=== PATIENT | male | born 1960 | race Caucasian/White ===

== ENCOUNTER → 2017-11-18 10:05 | Outpatient (CLI) | payer OTHER | END | disposition home or self-care (01) | LOC: D.RAD 10:00 | DX: Z02.71 Encounter for disability determination (principal) ==

== ENCOUNTER 2018-02-27 11:06 | Outpatient (CLI) | payer MEDICAID ==
[~2018-02-27] VITALS: Ht 182.9 cm; Wt 145.5 kg
--- NOTE | ~2018-02-27 | HEMODYNAMI ---
PATIENT:HU OLIVAREZ MEDICAL RECORD: [id number] : 56 LOCATION:[facility] ADMISSION DATE: 02/27/18 Generatedon:02/27/201814:44 Patient name: HU OLIVAREZ Patient #: [id number] SSN: : Date of study: 02/27/2018 Page: Of Hemodynamic Procedure Report Patient Data Patient Demographics Procedure consent was obtained First Name: HU Gender: Male Last Name: JUANIS : 1960 [facility] Initial: MIKE Age: 58 year(s) Patient #: [id number] Race: Unknown Additional ID: [id number] Contact details Address: [address] [place] [address] State: [place] City: [place] Zip code: [address] Past Medical History Allergies Allergen Reaction Date Comments Reported Other allergy 02/27/2018 poison adamaris Admission Admission Data Admission Date: 02/27/2018 Admission Time: 11:06 Lab Results Lab Result Date: 02/27/2018 Lab Result Time: 0:00 Biochemistry Name Units Result Min Max BUN mg/dl 11 --(-*--)-- 7 18 Creatinine mg/dl 1 --(--*-)-- 0.6 1.3 CBC Name Units Result Min Max Hemoglobin g/dl 15.2 --(-*--)-- 13.5 17.5 Procedure Procedure Types Cath Procedure Diagnostic Procedure LHC LHC w/Coronaries Procedure Description Procedure Date Procedure Date: 02/27/2018 Procedure Start Time: 14:33 Procedure End Time: 14:41 Procedure Staff Name Function Jaciel Quezada MD Performing Physician Sharmila Alejandre RT Monitor Cherry Dobbs RT Scrub Raine Dumas RN Nurse Procedure Data Cath Procedure Fluoroscopy Diagnostic fluoroscopy Total fluoroscopy Time: 1.6 time: 1.6 min min Diagnostic fluoroscopy Total fluoroscopy dose: 570 dose: 570 mGy mGy Contrast Material Contrast Material Type Amount (ml) Isovue 300 51 Entry Location Entry Primary Successful Side Size Upsize Upsize Entry Closure Succes sful Closure Location (Fr) 1 (Fr) 2 (Fr) Remarks Device Remarks Femoral Right 5 Fr Exoseal artery Estimated blood loss: 10 ml Diagnostic catheters Device Type Used For End Catheter Placement MULTIPACK JL 4.0 5Fr Procedure catheter MULTIPACK 3DRC 5Fr Procedure catheter MULTIPACK Pigtail 5 Fr Procedure catheter Procedure Complications No complications Procedure Medications Medication Administration Route Dosage Oxygen etCO2 Nasal cannula 2 l/min Lidocaine 2% added to field 20 Heparin Flush Bag added to field 2 bags (1000units/500ml NS) 0.9% NaCl I.V. 100 ml/hr Versed I.V. 2 mg Fentanyl I.V. 100 mcg Hemodynamics Rest HGB: 15.2 (g/dl) Heart Rate: 48 (bpm) Pressure Samples Time Site Value (mmHg) Purpose Heart Use Rate(bpm) 14:38 LV 128/19,25 Snapshot 53 14:38 AO 140/132(95) Pullback 52 14:38 LV 122/9,26 Pullback 52 Gradients Valve Time Site 1 Site 2 Mean SEP/DFP Peak To Heart Use (mmHg) (sec/min) Peak Rate (mmHg) (bpm) Aortic 14:38 LV AO 0 16 0 52 122/9,26 140/132(95) Calculations Valve P-P Mean Valve Index Valve Source Name Gradient Area Flow (cm2) Aortic 0 0 0 0 Snapshots Pre Cath Intra NCS Post Cath Vital Signs Time Heart Resp SPO2 etCO2 NIBP (mmHg) Rhythm Pain Sedation Rate (ipm) (%) (mmHg) Status Level (bpm) 14:28:42 50 19 100 39.1 148/88(112) NSR 0 (11) 10(A) , No pain 14:33:57 49 15 96 0 131/82(92) NSR 0 (11) 10(A) , No pain 14:38:14 51 15 94 0 126/83(107) NSR 0 (11) 9(A) , No pain 14:43:40 50 14 96 0 127/87(99) NSR 0 (11) 9(A) , No pain Medications Time Medication Route Dose Verified Delivered Reason Notes Eff ectiveness by by 14:26:41 Oxygen etCO2 2 Jaciel Ni used for Nasal l/min [facility] Dum[facility] client relationship manager cannula 14:26:49 Lidocaine 2% added 20ml Jaciel Grissom for local to vial [facility] Quezada anesthetic field MD RIGGS 14:26:58 Heparin Flush added 2 Jaciel Grissom used for Bag to bags [facility] Quezada procedure (1000units/500ml field MD RIGGS NS) 14:27:06 0.9% NaCl I.V. 100 Jaciel Ni Per ml/hr [facility] Dumas RN physician 14:31:28 Versed I.V. 2 mg Jaciel Ni for [facility] Dumas RN sedation 14:31:34 Fentanyl I.V. 100 Jaciel Ni for mcg [facility] Dumas RN sedation Procedure Log Time Note 14:00:37 Sharmila Hoganur RT(R) sent for patient. Start room use. 14:10:16 Diagnostic Cath Status : Elective 14:10:45 Time tracking: Regular hours (M-F 7:00 - 5:00) 14:10:49 Plan of Care:Hemodynamics will remain stable., Cardiac rhythm will remain stable., Comfort level will be maintained., Respiratory function will remain adequate., Patient/ family verbilizes understanding of procedure., Procedure tolerated without complication., Recovers from procedure without complications.. 14:11:07 Patient received from Pre/Post Procedure Room to [facility] 2 Alert and oriented. Tansferred to table in Supine position. 14:11:09 Warm blankets applied, and alex hugger turned on for patient comfort. 14:11:09 Correct patient and procedure confirmed by team. 14:11:11 Signed procedure consent form obtained from patient. 14:11:12 ECG and BP/O2 sat monitors applied to patient. 14:26:16 Vital chart was started 14:26:18 Baseline sample Acquired. 14:26:21 Full Disclosure recording started 14:26:28 H&P Date Dictated: 02/26/2018 Within 30 days and on chart.. 14:26:30 Pre-procedure instructions explained to patient. 14:26:31 Family in waiting room. 14:26:34 Patient NPO since Midnight. 14:26:38 Is the patient allergic to Iodine/contrast media? No. 14:26:41 Oxygen 2 l/min etCO2 Nasal cannula was administered by Raine Dumas RN; used for procedure; 14:26:49 Lidocaine 2% 20ml vial added to field was administered by Jaciel Quezada MD; for local anesthetic; 14:26:58 Heparin Flush Bag (1000units/500ml NS) 2 bags added to field was administered by Jaciel Quezada MD; used for procedure; 14:27:00 Patient allergic to Other allergypoison adamaris 14:27:03 Is the patient allergic to Iodine/contrast media? No. 14:27:04 Was the patient premedicated? Yes 14:27:06 0.9% NaCl 100 ml/hr I.V. was administered by Raine Dumas RN; Per physician; 14:27:06 Is patient on blood thinner?No 14:27:09 Patient diabetic? No. 14:27:14 Snore? Yes 14:27:16 Sleep apnea? No 14:27:18 Sleep apnea? N/A 14:27:22 Deviated septum? No 14:27:23 Sticks out tongue? Yes 14:27:28 Airway obstruction? Yes COPD 14:27:31 Dentures? No ? 14:27:38 IV patent on arrival in left hand with 0.9% NaCl at [facility]. 14:30:36 Lab Result : BUN 11 mg/dl 14:30:36 Lab Result : Hemoglobin 15.2 g/dl 14:30:36 Lab Result : Creatinine 1 mg/dl 14:30:41 Lab results completed and on chart. 14:30:43 Right groin area was prepped with chlora-prep and draped in sterile fashion 14:30:45 Alarms reviewed by R. N. 14:30:45 Sharps counted by scrub and verified by R.N. 14:30:46 Physician paged 14:30:46 Physician arrived 14:30:47 --------ALL STOP TIME OUT------ 14:30:48 Final Timeout: patient, procedure, and site verified with staff and physician. All members of the team are in agreement. 14:30:50 Right groin site verified by team. 14:30:54 Physical assessment completed. ASA score P 2 - A patient with mild systemic disease as per Jaciel Quezada MD. 14:30:59 Sedation plan: IV Moderate Sedation Medication:Versed, Fentanyl 14:31:03 Use device set Femoral Dx 14:31:05 ACIST Syringe (71822) opened to sterile field. 14:31:05 Bag Decanter (2002S) opened to sterile field. 14:31:06 Medline Cath Pack ([id number]) opened to sterile field. 14:31:06 DIAGNOSTIC WIRE .035 260cm J wire (283923) opened to sterile field. 14:31:08 ACIST Hand Control (41058) opened to sterile field. 14:31:08 ACIST Manifold (16373) opened to sterile field. 14:31:09 DIAGNOSTIC Multipack 5Fr catheter set ([id number]) opened to sterile field. 14:31:09 Tegaderm 4 x 4 (1626W) opened to sterile field. 14:31:12 SHEATH 5FR Ionia (NHN557) opened to sterile field. 14:31:28 Versed 2 mg I.V. was administered by Raine Dumas RN; for sedation; 14::33 Zero performed for pressure channel P1 14:31:34 Fentanyl 100 mcg I.V. was administered by Raine Dumas RN; for sedation; 14:33:17 Procedure started. 14:33:44 Local anesthetic to right femoral artery with Lidocaine 2% by Jaciel Quezada MD.INITIAL ACCESS ONLY 14:33:54 A 5 Fr sheath was inserted into the Right Femoral artery 14:34:48 A MULTIPACK JL 4.0 5Fr catheter was advanced over the wire and used for Procedure. 14:35:19 LCA angiography performed. 14:35:55 Catheter removed. 14:36:08 A MULTIPACK 3DRC 5Fr catheter was advanced over the wire and used for Procedure. 14:36:18 RCA angiography performed. 14:37:20 Catheter removed. 14:37:32 A MULTIPACK Pigtail 5 Fr catheter was advanced over the wire and used for Procedure. 14:37:38 LV angiography performed. 14:39:10 EF : 55 % 14:39:11 Catheter removed. 14:39:14 EXOSEAL 5Fr (EX500) opened to sterile field. 14:39:25 Sheath removed intact; hemostasis achieved with Exoseal to the Right Femoral artery. 14:39:28 Procedure ended.(Physican Out) 14:39:38 Fluoroscopy time 01.60 minutes. 14:39:42 Fluoroscopy dose: 570 mGy 14:39:42 Flurop Dose total: 570 14:39:46 Contrast amount:Isovue 300 51ml. 14:39:48 Sharps counted by scrub and verified by R.N. 14:39:49 Insertion/operative site no bleeding no hematoma. 14:39:54 Post-op/insertion site Right Femoral artery dressed using a 4 x 4 and Tegaderm. 14:39:57 Post Procedure Pulses reassessed and unchanged 14:40:01 Post-procedure physical assessment completed. ASA score P 2 - A patient with mild systemic disease as per Jaciel Quezada MD. 14:40:05 Post procedure rhythm: unchanged. 14:40:09 Estimated blood loss: 10 ml 14:40:11 Post procedure instruction explained to patient.Patient verbalizes understanding. 14:40:21 Procedure and supply charges have been captured, reviewed, submitted and are correct. 14:41:00 Procedure Complication : No complications 14:41:03 Vital chart was stopped 14:41:04 See physician's report for complete and final results. 14:41:07 Report given to Pre/Post Procedure Room. 14:41:11 Patient transfered to Pre/Post Procedure Room with Stretcher. 14:41:14 Procedure ended. 14:41:14 Full Disclosure recording stopped 14:41:17 End room use (Document Last) Device Usage Item Name Manufacture Quantity Catalog Hospital Part Current Minimal L ot# / Number Charge Number Stock Stock Serial# Code ACIST Acist 1 82960 424800 448734 578602 20 Syringe Medical (21737) Systems Inc Bag Microtek 1 2001S 153871 75505 663588 5 Decanter Medical Inc. () Medline Medline 1 [id number] 530333 81917 565180 5 Cath Pack ([id number]) DIAGNOSTIC [facility] [place] 1 277590 310609 712627 356132 30 WIRE .035 260cm J wire (734743) ACIST Hand Acist 1 20335 225630 558940 423954 5 Control Medical (47347) Systems Inc ACIST Acist 1 37554 973079 221901 162879 5 Manifold Medical (10751) Systems Inc DIAGNOSTIC Cardinal 1 WN0074 548788 18578 392574 30 Multipack Health 5Fr catheter set (SK0187) Tegaderm 4 3M 1 1626W 294811 784020 510472 5 x 4 (1626W) SHEATH 5FR Terumo 1 [id number] 072046 704106 412178 40 Ionia (TRN143) MULTIPACK Cardinal 1 281376 5 JL 4.0 5Fr Health catheter MULTIPACK Cardinal 1 996787 5 3DRC 5Fr Health catheter MULTIPACK Cardinal 1 213585 5 Pigtail 5 Health Fr catheter EXOSEAL 5Fr Cardinal 1 EX500 715025 695459 881169 10 (EX500) Health Signature Audit [place] Stage Time Signature Unsigned Intra-Procedure 02/27/2018 Sharmila Alejandre 2:44:14 PM RT(R) Signatures Monitor : Sharmila Alejandre Signature : RT Date : Time : [place] [id number] [place] [address]
--- NOTE | ~2018-02-27 | OP ---
PATIENT NAME: HU OLIVAREZ MEDICAL RECORD: [id number] :56 LOCATION:D.[facility] ADMISSION DATE: SURGEON: LIU MILLARD MD DATE OF OPERATION: 02/27/2018 PROCEDURE: Left heart catheterization, selective coronary angiography, right femoral artery approach. CATHETERS: A 5-Hebrew sheath, 5/4 left and right Nadya, 5/4 pig. The procedure was well tolerated. The patient was returned to the henry. Sheath was removed. Adequate hemostasis was obtained. ExoSeal was placed. FINDINGS: Left ventriculography in 30-degree ESCAMILLA view: Normal wall motion and normal systolic function. CORONARY ANATOMY: LEFT MAIN: Left main is free of disease. LAD: Free of disease in the diagonal system. CIRCUMFLEX: Free of disease in the marginal system. Normal coronary anatomy. TRANSINT:[id number] Voice Confirmation ID: [id number] DOCUMENT ID: [id number] LIU MILLARD MD at 1407 CC: [id number] DICTATION DATE: 02/27/18 1447 MARKETING DESIGNER: 02/27/18 1756 DEP CLI 02/27/18 [facility] [address] [place] [address]
[2018-02-27] MEDS ORDERED: BYSTOLIC10 MG PO (11:24)
[2018-02-27 11:39] VITALS: BP 131/73; Ht 182.9 cm; Wt 145.5 kg
[2018-02-27 12:02] LABS: BASOPHILS 0.5 % (0-2); HEMATOCRIT 46.3 % (42.0-54.0); HEMOGLOBIN 15.2 g/dL (13.5-17.5); IMMATURE GRANULOCYTES 0.3 % (0-5); LYMPHOCYTES 25.9 % (15-50); MCH 29.5 pg (26.0-34.0); MCHC 32.8 g/dL (31.0-37.0); MCV 89.7 fL (80.0-100.0); MEAN PLATELET VOLUME 11.4 fL (7.4-10.4); MONOCYTES 6.8 % (2-11); NEUTROPHILS 64.5 % (40-80); PLATELET COUNT 205 10x3/uL (130-400); RBC 5.16 10x6/uL (4.20-6.10); RDW 13.6 % (11.5-14.5)
[2018-02-27 12:10] LABS: CALC OSMOLALITY 276 mosm/kg (275-300); CALCIUM 8.5 mg/dL (8.5-10.1); CARBON DIOXIDE 25.9 mmol/L (21.0-32.0); CHLORIDE - SERUM 105 mmol/L (98-107); CREATININE - SERUM 1.1 mg/dL (0.6-1.3); GLUCOSE 103 mg/dL (74-106); SODIUM 139 mmol/L (136-145); UREA NITROGEN 11 mg/dL (7-18); eGFR NON AFRICAN AMERICAN 72 mL/min (90-120)
== END 2018-02-27 16:50 ==
LOC: D.CATH 11:06
PROVIDERS: Internal Medicine Interventional Cardiology
DX: I20.9 Angina pectoris, unspecified (principal); Z01.812 Encounter for preprocedural laboratory examination

== ENCOUNTER → 2020-08-02 13:32 | Outpatient (CLI) | payer MEDICARE ==
[2018-02-27 11:39] VITALS: BMI 43.5
[~2020-08-02 13:32] MED LIST: BYSTOLIC10 MG PO
== END | disposition home or self-care (01) ==
LOC: D.HCCECHO 13:32
PROVIDERS: ATTEND Internal Medicine Interventional Cardiology
DX: R01.1 Cardiac murmur, unspecified (principal)